=== PATIENT | female | born 1965 | race Caucasian/White ===

== ENCOUNTER → 2024-12-04 | Outpatient (CLI) | payer OTHER ==
[2024-12-11 15:20] LABS: HPV HIGH RISK BY TMA Not Detected; HPV SOURCE Cervix
== END ==
LOC: LAB SHORT 10:47 → LAB 10:47
PROVIDERS: Physician Assistant
DX: Z01.419 Encounter for gynecological examination (general) (routine) without abnormal findings (principal)
CPT/HCPCS: 87624; G0123